=== PATIENT | female | born 1955 | race Caucasian/White ===

== ENCOUNTER 2019-01-16 08:42 | Outpatient (CLI) | payer OTHER ==
[~2019-01-16] VITALS: Ht 154.9 cm; Wt 61.7 kg
[2019-01-16 09:19] VITALS: BP 122/65
[2019-01-16] MEDS ORDERED: ZANTAC150 MG ORAL (09:19)
[2019-01-16] MEDS ORDERED: ATENOLOL25 MG ORAL (09:19)
[2019-01-16] MEDS ORDERED: ATORVASTATIN CA10 MG ORAL (09:19)
[2019-01-16] MEDS ORDERED: TUMS200 M1 PO (09:19)
--- NOTE | 2019-01-16 09:33 | GI Initial Consult Note ---
History of Present Illness General Date patient seen: Jan 16, 2019 Time patient seen: 09:26 Referring physician: HMO Reason for Consultation: ABDOMINAL PAIN Present Illness HPI This is a 53-year-old female patient who presents today with complaint of abdominal pain, abnormal CT scan. Abdominal pelvic CT was reviewed noted that the patient had moderate dilation of the proximal jejunum with wall thickening without any evidence of obstruction which may represent nonspecific enteritis. Patient has a past medical history of depression, hypertension, cholesterol, bowel obstruction with lysis of the adhesions back in 1992, endometriosis status post hysterectomy in 1985. The patient presents today with right upper quadrant pain, mild weight loss, episode of diarrhea this morning. Patient has history of colonoscopy in August 2013. The patient has had a recent dietary change lately. Home Meds Reported Medications Calcium Carbonate (TUMS) 200 Mg Tab.chew, 200 MG PO PRN, TAB 01/16/19 Ranitidine Hcl* (ZANTAC*) 150 Mg Tablet, 150 MG ORAL TWICE A DAY, TAB 01/16/19 Atorvastatin Calcium* (LIPITOR*) 10 Mg Tablet, 10 MG ORAL BEDTIME, TAB 01/16/19 Atenolol* (TENORMIN*) 25 Mg Tablet, 25 MG ORAL DAILY, TAB 01/16/19 Med list reviewed/reconciled: Yes Allergies: Coded Allergies: No Known Allergies (Unverified , 01/16/19) Patient History History Provided By: Patient, Medical Record PMH Narrative Depression Hypertension Hyperlipidemia History of bowel obstruction Endometriosis Past surgical history hysterectomy Removal of ovaries Bowel obstruction Family History Narrative Father has a history of lung cancer Mother has coronary artery disease Social History: Denies: smoking, alcohol use, drug use, other Review of Systems All Other Systems: negative except mentioned in HPI Physical Exam Vital Signs Date Time Temp Pulse Resp B/P (MAP) Pulse Ox O2 Delivery O2 Flow Rate FiO2 01/16/19 09:19 98.2 92 18 122/65 (84) 97 Sp02 EP Interpretation: reviewed, normal General Appearance: well appearing, no apparent distress, alert Head: normocephalic EENT: PERRL/EOMI, normal ENT inspection Neck: supple Respiratory: normal breath sounds, no respiratory distress Cardiovascular: normal rate Gastrointestinal: normal inspection, non tender, soft, normal bowel sounds, non -distended, other - Abdomen is soft, nondistended, nontender Rectal: deferred Genitourinary: no CVA tenderness Musculoskeletal: normal inspection, back normal Neurologic: normal inspection, alert, oriented x3, responsive Psychiatric: normal inspection, judgement/insight normal, memory normal Skin: normal inspection, normal color, no rash, warm/dry, palpation normal, well hydrated Lymphatic: normal inspection, no adenopathy GI: Plan Problems: (1) Abdominal pain (2) History of small bowel obstruction (3) Hypertension (4) Hyperlipidemia (5) Endometriosis Plan At this time, no specific GI treatment needed for nonspecific enteritis No evidence of bowel obstruction Pain management P.o. hydration Patient to go to the emergency room in the event of increased abdominal pain and abdominal distention Recommend patient have routine colonoscopy, but patient refused at this time RTC prn Discussed with Dr. Chaidez. Thank you for this patient referral, we will follow. The patient was seen and examined at bedside and all new and available data was reviewed in the patients chart. I agree with the above findings, impression and plan. (Patient seen earlier today. Signature stamp does not reflect patient encounter time.). - MD Luana [facility] [employer] Jan 16, 2019 09:33
[2019-01-16] MEDS ORDERED: PRAVASTATIN SOD20 M1 ORAL (10:51)
[2019-01-16] MEDS ORDERED: QUINAPRIL HCL40 MG PO (10:51)
[2019-01-16] MEDS ORDERED: HYDROCHLOROTH12.5 M2 ORAL (10:51)
[2019-01-16] MEDS ORDERED: LEXAPRO10 MG ORAL (10:51)
[2019-01-16 10:52] VITALS: BP 122/83
== END 2019-01-16 12:39 | disposition home or self-care (01) ==
LOC: PAN 08:42
DX: R10.9 Unspecified abdominal pain (principal); I10 Essential (primary) hypertension; N80.9 Endometriosis, unspecified; F32.9 Major depressive disorder, single episode, unspecified; Z90.710 Acquired absence of both cervix and uterus; Z90.722 Acquired absence of ovaries, bilateral; Z79.899 Other long term (current) drug therapy
CPT/HCPCS: 99202